=== PATIENT | female | born 1965 | race Caucasian/White ===

== ENCOUNTER 2016-12-10 08:37 | Emergency (ER) | payer BC ==
--- NOTE | 2016-12-10 09:12 | UC ---
Shoulder Pain HPI - HPI Summary HPI Summary: 51 year old female Here w/ LEFT shoulder pain since Wednesday night. Pain worse w / movement- feels "burning and sharp". Pt has hx of tendinitis, but states " this feels different"- denies any radiating pain and denies chest pain/numbness/ tingling. Denies injury to LEFT shoulder. Tried ice/hea and taking tylenol, advil, and tylenol w/ codeine w/ no pain relief- last dose of tylenol 1000mg this morning 0300 and last dose of tylenol w/ codeine yesterday. She had shoulder pain 2 years ago and had PT and it helped. She is to see PCp in 4 days. [ End ] - History of Current Complaint Chief Complaint: UCUpperExtremity Stated Complaint: LEFT SHOULDER PAIN Time Seen by Provider: 12/10/16 09:03 Hx Obtained From: Patient Hx Last Menstrual Period: 28 days ago ?: No Onset/Duration: Sudden Onset Timing: Constant Severity Initially: Moderate Severity Currently: Moderate Character: Sharp Aggravating Factor(s): Movement Alleviating Factor(s): Rest - Allergies/Home Medications Allergies/Adverse Reactions: Allergies Allergy/AdvReac Type Severity Reaction Status Date / Time No Known Allergies Allergy Verified 12/10/16 08:45 Home Medications: Home Medications Cholecalciferol [Vitamin D] 1 tab DAILY 12/10/16 [History Confirmed 12/10/16] LORazepam TAB(*) [Ativan 0.5 MG TAB (*)] 1 tab DAILY PRN 12/10/16 [History Confirmed 12/10/16] Ranitidine TAB (NF) [Zantac TAB (NF)] 300 mg BEDTIME 12/10/16 [History Confirmed 12/10/16] Zinc [Zinc Methionate] 1 tab DAILY 12/10/16 [History Confirmed 12/10/16] PMH/Surg Hx/FS Hx/Imm Hx Previously Healthy: Yes GI/ History: Gastroesophageal Reflux Psychological History: Anxiety - Surgical History Surgical History: Yes Surgery Procedure, Year, and Place: Varicose veins - Social History Occupation: Employed Full-time - Pharmacist Alcohol Use: None Substance Use Type: None Smoking Status (MU): Never Smoked Tobacco - Immunization History Most Recent Influenza Vaccination: NOT YET 2017 Most Recent Tetanus Shot: unknown Review of Systems Constitutional: Negative Skin: Negative Eyes: Negative ENT: Negative Respiratory: Negative Cardiovascular: Negative Gastrointestinal: Negative Genitourinary: Negative Motor: Negative Neurovascular: Negative Musculoskeletal: Negative, Arthralgia, Decreased ROM Neurological: Negative Psychological: Negative All Other Systems Reviewed And Are Negative: Yes Physical Exam Triage Information Reviewed: Yes Appearance: Well-Appearing, Pain Distress - moderate Vital Signs: Initial Vital Signs Temp 98.8 F 12/10/16 08:48 Pulse 82 12/10/16 08:48 Resp 18 12/10/16 08:48 BP 100/66 12/10/16 08:48 Pulse Ox 100 12/10/16 08:48 Vital Signs Reviewed: Yes Respiratory Exam: Normal Cardiovascular Exam: Normal Musculoskeletal: Positive: ROM Limited @ - Left shoulder with reduced ROM in all planes. Can not extend > 75 degrees at the shoulder. (+) impingement. (+) Neer's. Normal neck and elbow exam. Neurological Exam: Normal Psychological Exam: Normal Skin Exam: Normal Shoulder Course/Dx - Course Assessment/Plan: At this time still in significant pain at night even with APAP , Tylenol #3 and NSAIDs. Give a small amount of norco. She already had appt in [address] Banks. Declined Xray at this time. Declined PT referral but she will start home PT. If Sx persist then she will get imaging with Dr. Darren Elizabeth RTO if any concerns - Differential Dx/Diagnosis Differential Diagnosis/HQI/PQRI: Rotator Cuff Injury, Sprain, Strain, Tendonitis Provider Diagnoses: Left shoulder tendonitis Discharge - Discharge Plan Condition: Good Disposition: HOME Prescriptions: HYDROcodone/ACETAMIN 5-325 MG* [[place] 5-325 TAB*] 1 tab PO Q8H PRN #10 tab MDD 3 PRN Reason: Severe Pain Patient Education Materials: Rotator Cuff Injury (ED) Referrals: Vinicio Templeton DO [Primary Care Provider] - 4 Days Additional Instructions: Please start Home PT . Continue with OTC medications and if in severe pain then you may take the norco. Please keep follow up with Dr Templeton
[2016-12-10 09:17] VITALS: BP 100/66
== END 2016-12-10 09:30 | disposition home or self-care (01) ==
LOC: UCCORT 08:37
DX: M75.92 Shoulder lesion, unspecified, left shoulder (principal); K21.9 Gastro-esophageal reflux disease without esophagitis; F41.9 Anxiety disorder, unspecified
CPT/HCPCS: 99212; G0463